=== PATIENT | female | born 1945 | race Caucasian/White ===

== ENCOUNTER 2020-05-18 06:15 | Day surgery (SDC) | payer OTHER, SELFPAY ==
[~2020-05-18] VITALS: Ht 152.4 cm; Wt 66.2 kg
[2020-05-18] MEDS ORDERED: MIDAZOLAM HCL 5 MG/5 ML VIAL ONE (07:26)
[2020-05-18] MEDS ORDERED: MEPERIDINE HCL/PF 100 MG/ML AMP ONE (07:26)
[2020-05-18] MEDS ORDERED: SIMETHICONE 40 MG/0.6 ML ML ONE (07:26)
[2020-05-18] MEDS ORDERED: fentaNYL CITRATE/PF 100 MCG/2 ML AMP ONE (08:14)
[2020-05-18 10:12] VITALS: BP_SYST 166
== END 2020-05-18 10:00 | disposition home or self-care (01) ==
LOC: SDS 06:15 → SMU 06:15 → SDS 10:00
PROVIDERS: ATTEND Internal Medicine Gastroenterology
DX: R19.5 Other fecal abnormalities (principal); D12.0 Benign neoplasm of cecum; K64.8 Other hemorrhoids; K57.30 Diverticulosis of large intestine without perforation or abscess without bleeding; I12.0 Hypertensive chronic kidney disease with stage 5 chronic kidney disease or end stage renal disease; N18.6 End stage renal disease; Z99.2 Dependence on renal dialysis; Z20.828 Contact with and (suspected) exposure to other viral communicable diseases
CPT/HCPCS: 45380; 82962; 88305; 99152; G0378; J2250; J3010; U0003; J2175